=== PATIENT | male | born 1995 | race Caucasian/White ===

== ENCOUNTER 2021-02-06 19:59 | Emergency (ER) | payer OTHER ==
[~2021-02-06] VITALS: Ht 177.8 cm; Wt 86.2 kg
[2021-02-06 21:05] VITALS: BP 123/82
--- NOTE | 2021-02-07 16:15 | EKG ---
[place] [address] ELECTROCARDIOGRAM REPORT Name: CHRISTIE GUTIÉRREZ Room: [facility]#: [id number] Admission: 02/06/21 Attend Phys: Discharge: 02/06/21 Date of : 89 Date of Service: 02/06/212007 Report #: [id number] THIS REPORT FOR: //name// [facility] ED Test Date: 2021-02-06 Test Time: 20:08:14 Pat Name: CHRISTIE GUTIÉRREZ Department: Room: Gender: Width Stripper: : 1995 Requested By: Maxx Bello Order Number: [id number] Oli MD: Martín Thompson Measurements Intervals [place] Rate: 99 P: 54 [place]: 135 QRS: 81 QRSD: 91 T: 28 QT: 321 QTc: 412 Interpretive Statements Sinus rhythm Baseline wander in lead(s) V3,V4,V5 No previous ECG available for comparison Electronically Signed On 02-07-2021 16:15:09 CDT by Martín Thompson [email or web address] <ELECTRONICALLY SIGNED> By: Martín Thompson MD, [facility] 02/07/21 1615 07 07 Martín Thompson MD, FACC /EPI
== END 2021-02-06 21:08 | disposition left against medical advice (07) ==
LOC: M.ERS 19:59
DX: R06.02 Shortness of breath (principal); R07.89 Other chest pain; R68.84 Jaw pain; Z53.21 Procedure and treatment not carried out due to patient leaving prior to being seen by health care provider